=== PATIENT | male | born 1985 | race Caucasian/White ===

== ENCOUNTER 2019-05-04 20:06 | Emergency (ER) | payer OTHER ==
[~2019-05-04] VITALS: Ht 193 cm; Wt 162.6 kg
[~2019-05-04 20:06] MED LIST: OXYC-302 PO; SENN-177 PO
[2019-05-04] MEDS ORDERED: KETAMINE 10 MG/ML, 20ML ONE (21:16)
[2019-05-04] MEDS ORDERED: KETAMINE 10 MG/ML, 20ML IV ONE (21:30)
[2019-05-04] MEDS ORDERED: PROPOFOL 10 MG/ML, 20ML ONE (22:22)
--- NOTE | 2019-05-04 22:27 | NUR ---
Task rn:This rn assisting w/ procedural sedation. Consent signed prior and all emergent equipment in place. Pt tolerating procedure well.
--- NOTE | 2019-05-04 22:33 | NUR ---
Procedure end at 2230. Pt tolerated well. Awaiting recovery and imaging.
--- NOTE | 2019-05-04 22:54 | NUR ---
Pt sleeping on bed. Pt responds to verbal stimuli and has purposeful movements. Maintaining bp and spo2 w/o supp o2.
[2019-05-04] MEDS ORDERED: PROPOFOL 10 MG/ML, 20ML IVPush ONE (23:00)
--- NOTE | 2019-05-04 23:09 | NUR ---
Pt back to baseline at this time. Awaiting d/c. instructions. Pt verbally agrees not to drive home. Will get a ride.
[2019-05-04 23:31] VITALS: BP 142/80
== END 2019-05-04 23:33 | disposition home or self-care (01) ==
LOC: ED 23:05
DX: G89.11 Acute pain due to trauma (principal); R68.84 Jaw pain; F17.200 Nicotine dependence, unspecified, uncomplicated; W01.0XXA Fall on same level from slipping, tripping and stumbling without subsequent striking against object, initial encounter; Y93.89 Activity, other specified; Y92.009 Unspecified place in unspecified non-institutional (private) residence as the place of occurrence of the external cause; Y99.8 Other external cause status
CPT/HCPCS: 21480; 70486; 99152; 99285